=== PATIENT | female | born 1945 ===

== ENCOUNTER 2018-08-22 08:30 | Day surgery (SDC) | payer MEDICARE ==
[2018-08-22] MEDS ORDERED: Lactated Ringer's 500 ML IV ONE (09:00)
[2018-08-22 09:34] VITALS: BMI 31.2
[2018-08-22] MEDS ORDERED: Midazolam 2 MG/2 ML VIAL ONE (10:55)
[2018-08-22] MEDS ORDERED: Propofol 10 mg/ml Inj (20 ML) ONE (10:55)
[2018-08-22 11:43] VITALS: RESP 19
[2018-08-22 11:44] VITALS: BP 113/70; PULSE 59; TEMP 97; O2SAT 98
== END 2018-08-22 12:04 | disposition home or self-care (01) ==
LOC: H.ENDO 08:30
PROVIDERS: ATTEND Internal Medicine Gastroenterology
DX: Z12.11 Encounter for screening for malignant neoplasm of colon (principal); E03.9 Hypothyroidism, unspecified; M81.0 Age-related osteoporosis without current pathological fracture; K64.8 Other hemorrhoids; K57.30 Diverticulosis of large intestine without perforation or abscess without bleeding
CPT/HCPCS: 45378; J2001; J2250; J2704; J7120